=== PATIENT | female | born 1990 | race Caucasian/White ===

== ENCOUNTER 2020-10-10 15:23 | Outpatient (RCR) | payer OTHER, SELFPAY ==
--- NOTE | 2020-10-10 15:30 | PC.NURSE ---
IN 1400 OUT 1455 HISTORY: Pt. delivered at 39 weeks. had no complications after delivery. Mother had no complications after delivery. Infant is now 8 days old. Infant appears to be well cared for. has been seen by [facility] as scheduled. Mother reports: Mother was while in the hospital and home. Mother began supplementing after breastfeedings due to jaundice. Infant is now bottle fed EBM for all feedings. The last few days, mother was attempting infant to breast using a nipple shield, then bottle feeding. is having issues with latch and maintaining latch. She is now pumping and bottle feeding EBM. Mother is pumping 40-60mls every three hours with a double electric pump. nipples the 40-60 mls mother pumps previous feeding. Mother reports feedings are taking up to 60-75 minutes, she is tired and concerned with infant feeding status. FOB is with for appointment and provides great help with . Mother wishes: To return to breast for feedings, and discontinue pumping and bottle feeding. OBSERVATION: Currently at 6 wets per day and 4-5 yellow seedy stools per day. weight: 6#14 Lowest weight: 6#8 Last Weight at [facility]: 6#12 at 1 week. Pre feeding weight: Post feeding weight: 3175 Reviewed positioning/alignment in cross cradle, holding breast in U hold and guided asymmetrical latch on. After several attempts, infant was unable to latch correctly. Suggested and offered a nipple shield. Mother has a nipple shield with her she was using at home. . Reviewed application and cleaning of shield. Discussed nipple shield precautions and possible complications. Discussed the need for regular pumping if infant continues to nurse with the shield until is able to effectively nurse and gain weight. Patient verbalizes understanding. With shield in place infant was able to latch correctly after several minutes of crying. Infant bottle fed 10 mls to calm and entice to latch. Infant nursed with short bursts of eager suckling, with steady draws and occasional swallowing noted followed with long periods of pausing and /or crying. Reviewed signs of a correct latch, effective nursing and suck swallow ratio. Infant was able to maintain latch without discomfort to mother. Demonstrated breast compression to assist with milk flow to entice into effective suck pattern. would continue with bursts of sucking followed with long pause. Advised to stimulate infant to keep awake for increased intake, stimulation of milk supply and to assist with maintaining latch. Infant would respond with short bursts of suckling with long pausing. Formula dribbled to entice effective suckling with short bursts of nursing. Discussed effective nursing and ineffective nursing. Advised infant is not nursing adequately to discontinue supplementation at this time. PLAN: Mother will put infant to one breast each feeding up to 15 minutes, increasing duration as infant has more effective nursing. Infant will then be supplemented as much as he desires per feeding. may feed on demand, mother will wake by 4 hours for feedings. Mother will then pump both breasts 15 minutes to keep milk supply and to offer as part/all of supplement Mother will call with further questions or concerns. Follow up visit scheduled for 10/13/2020..
--- NOTE | 2020-10-13 14:32 | PC.NURSE ---
IN 1300 OUT 1405 HISTORY: First visit on 10-10-2020 to for assist with latching. Mother reports: Mother reports will latch with nipple shield once bottle fed 10-15 mls. will continue to burst nurse with more eager periods of effective sucking. Mother has been working with breast compression to keep milk flowing, will respond with good bursts of effective nursing with freq swallowing noted. Mother feels infant will freq. feed on both breasts and is taking less supplement. is feeding more frequently of every 1-3 hours during the day and 2-3 at night and taking 30-50 mls, previously was every 3-4 hours with 60mls supplement. Mother is tearful and tired. Mother wishes: Increased , less pumping and bottle feeding. Mother would like to attempt using Supplemental Nursing System (SNS) OBSERVATION: Pre Feeding Weight: Currently at 6 wets per day and 4-5yellow seedy stools per day. Mother struggles to latch infant using nipple shield, shield does not remain in place is fussy and pulling at breast. Once on, will cry and arch back, several attempts using bottle to entice to feed. Infant had minimal time at breast, mostly crying. Mother reports this to be a typical feeding. SNS offered and explained. Mother states she used SNS with first child 9 years ago. Once latched to breast using shield, SNS tube fed in thru on upper palate. Infant nursed eagerly taking 25 mls using the SNS within 15 minutes. Attempts to clamp off flow, once clamped infant did not suckle at breast, he released and began crying. Once EBM was finished did not suckle he released latch and began crying. Infant eagerly completed bottle. PLAN: Mother continue feeding using nipple shield and SNS, suggested mother use formula for the next few feedings as much is wasted with attempting latch using SNS. Reviewed how to tape tube to outside and inside of shield as her preference. Mother will continue to offer supplement of as much as infant desires after each feeding and will follow with pumping. Mother will call with further questions or concerns. Follow phone call scheduled for 10/16/2020. I
== END 2020-11-18 09:56 | disposition home or self-care (01) ==
LOC: ANHOBOP 15:23
PROVIDERS: Visit Provider Pediatrics
DX: Z39.1 Encounter for care and examination of lactating mother (principal)
CPT/HCPCS: 99212; G0463